=== PATIENT | female | born 1970 | race African-American/Black ===

== ENCOUNTER 2024-05-27 17:26 | Emergency (ER) | payer MEDICAID, OTHER ==
[~2024-05-27] VITALS: Ht 170.2 cm; Wt 95.3 kg
[2024-05-27 17:56] VITALS: BP 139/91; PULSE 108; RESP 16; TEMP 96.6; O2SAT 99
[2024-05-27] MEDS ORDERED: LACTATED RINGERS 1,000 ML IV SCH (19:00)
[2024-05-27] MEDS ORDERED: LEVETIRACETAM 500MG PREMIX 100 ML IV ONE ×2 (19:00)
[2024-05-27 19:20] LABS: BASOPHILS % 0.7 % (0.0-2.0); EOSINOPHILS % 2.5 % (0.0-5.0); HEMATOCRIT. 38.8 % (36.0-48.0); HEMOGLOBIN. 12.3 g/dL (12.0-16.0); LYMPHOCYTES % 25.7 % (20.0-50.0); MEAN CORPUSCULAR HEMOGLOBIN 27.3 pg (28.0-32.0); MEAN CORPUSCULAR HGB CONC 31.8 g/dL (31.0-37.0); MEAN CORPUSCULAR VOLUME 85.8 fL (81.0-99.0); MEAN PLATELET VOLUME 8.6 fl (7.4-10.4); MONOCYTES % 5.9 % (2.0-8.0); NEUTROPHILS % 65.2 % (40.0-76.0); PLATELET 299 x1000/uL (130-400); RED BLOOD CELL COUNT 4.52 mill/uL (4.2-5.4); RED CELL DISTRIBUTION WIDTH 15.6 % (11.6-14.6); WHITE BLOOD COUNT 6.3 x1000/uL (4.5-11.0)
[2024-05-27 19:23] LABS: CHLORIDE 107 mEq/L (98-107); POTASSIUM 3.9 mEq/L (3.5-5.1); SODIUM 142 mEq/L (136-145)
[2024-05-27 19:24] LABS: CALCIUM 9.6 mg/dL (8.7-10.4); CARBON DIOXIDE 28 mEq/L (21-32)
[2024-05-27 19:29] LABS: CREATININE 0.9 mg/dL (0.6-1.0); GLUCOSE 89 mg/dL (70-105); HCG SCREEN NEGATIVE; UREA NITROGEN BLOOD 5 mg/dL (9-23)
[2024-05-27 19:31] LABS: ALANINE AMINOTRANSFERASE 33 IU/L (10-49); ALBUMIN 4.6 g/dL (3.2-4.8); ASPARTATE AMINOTRANSFERASE 41 IU/L (<34); BILIRUBIN TOTAL 0.3 mg/dL (0.1-1.0); PROTEIN TOTAL 7.2 g/dL (6.0-8.3)
[2024-05-27 19:32] LABS: BILIRUBIN DIRECT < 0.1 mg/dL (<=3.0)
[2024-05-27] MEDS ORDERED: DULO60CA64 MT (21:40)
== END 2024-05-27 21:55 | disposition left against medical advice (07) ==
LOC: ER 17:26 → EDBEDREQ 18:50 → ER 21:55
DX: R56.9 Unspecified convulsions (principal); R51.9 Headache, unspecified; E11.9 Type 2 diabetes mellitus without complications; I10 Essential (primary) hypertension
CPT/HCPCS: 80076; 80048; 84703; 85025; 36415; 70450; 93005; 99284; Z7610

== ENCOUNTER 2024-07-18 14:08 | Emergency (ER) | payer MEDICAID ==
[~2024-07-18] VITALS: Ht 170.2 cm; Wt 85.0 kg
[~2024-07-18 14:08] MED LIST: DULO60CA64 MT
[2024-07-18 14:11] VITALS: O2SAT 100
[2024-07-18 14:12] VITALS: BP 145/93; PULSE 104; RESP 18; TEMP 98.1; O2SAT 96
[2024-07-18 14:58] LABS: BASOPHILS % 0.9 % (0.0-2.0); EOSINOPHILS % 1.8 % (0.0-5.0); HEMATOCRIT. 40.1 % (36.0-48.0); HEMOGLOBIN. 12.7 g/dL (12.0-16.0); LYMPHOCYTES % 22.8 % (20.0-50.0); MEAN CORPUSCULAR HEMOGLOBIN 26.8 pg (28.0-32.0); MEAN CORPUSCULAR HGB CONC 31.7 g/dL (31.0-37.0); MEAN CORPUSCULAR VOLUME 84.6 fL (81.0-99.0); MEAN PLATELET VOLUME 8.4 fl (7.4-10.4); NEUTROPHILS % 69.5 % (40.0-76.0); PLATELET 399 x1000/uL (130-400); RED BLOOD CELL COUNT 4.74 mill/uL (4.2-5.4); RED CELL DISTRIBUTION WIDTH 15.4 % (11.6-14.6); WHITE BLOOD COUNT 6.8 x1000/uL (4.5-11.0)
[2024-07-18 14:59] LABS: CHLORIDE 106 mEq/L (98-107); POTASSIUM 3.9 mEq/L (3.5-5.1); SODIUM 139 mEq/L (136-145)
[2024-07-18 15:00] LABS: CALCIUM 10.1 mg/dL (8.7-10.4); CARBON DIOXIDE 28 mEq/L (21-32)
[2024-07-18 15:05] LABS: CREATININE 1.1 mg/dL (0.6-1.0); GLUCOSE 90 mg/dL (70-105); UREA NITROGEN BLOOD 6 mg/dL (9-23)
== END 2024-07-18 18:34 | disposition left against medical advice (07) ==
LOC: ER 14:08
DX: R07.89 Other chest pain (principal); Z53.21 Procedure and treatment not carried out due to patient leaving prior to being seen by health care provider
CPT/HCPCS: 80048; 85025; 36415; 71045; 93005; Z7610 ×4

== ENCOUNTER 2024-09-22 06:47 | Emergency (ER) | payer MEDICAID ==
[~2024-09-22] VITALS: Ht 172.7 cm; Wt 86.0 kg
[2024-09-22 06:58] VITALS: BP 108/86; PULSE 92; RESP 16; TEMP 98.1; O2SAT 98
[2024-09-22] MEDS ORDERED: LEVETIRACETAM 500MG TABLET PO NR (07:30)
== END 2024-09-22 07:58 | disposition left against medical advice (07) ==
LOC: ER 06:47
DX: G40.909 Epilepsy, unspecified, not intractable, without status epilepticus (principal); E11.9 Type 2 diabetes mellitus without complications; E78.5 Hyperlipidemia, unspecified; I10 Essential (primary) hypertension; Z98.890 Other specified postprocedural states
CPT/HCPCS: 82962; 93005; 99283